=== PATIENT | male | born 1945 | race Caucasian/White ===

== ENCOUNTER → 2021-03-31 | Day surgery (SDC) | payer MEDICARE, OTHER ==
[2021-03-29 10:25] LABS: BASOPHILS # (AUTO) 0.1 (0.0-0.1); BASOPHILS % 0.6 % (0.0-1.0); EOSINOPHILS # (AUTO) 0.2 (0.0-0.4); EOSINOPHILS % 1.8 % (0.0-6.0); HEMATOCRIT 39.3 % (38.2-49.6); HEMOGLOBIN 12.4 g/dL (14.0-18.0); LYMPHOCYTES # (AUTO) 2.2 (1.0-3.2); LYMPHOCYTES % 26.6 % (18.0-39.1); MEAN CORPUSCULAR HGB CONC 31.6 g/dL (31-35); MONOCYTES # (AUTO) 0.6 (0.2-0.8); NEUTROPHILS # (AUTO) 5.2 (2.1-6.9); NEUTROPHILS % 63.8 % (38.7-80.0); PLATELET COUNT 240 x10e3/uL (140-360); RED BLOOD COUNT 4.27 x10e6/uL (4.3-5.7); RED CELL DISTRIBUTION WIDTH 13.3 % (11.7-14.4)
[~2021-03-31] MED LIST: ABILIFY5 MG PO; ACETYL; ALPHA LIPOIC A300 MG; ASPIRIN81 MG PO; BUPIVACAINE 0.25% 30ML SDV ONE; CALCIUM ACETAT667 MG PO; CRESTOR10 MG PO; CYMBALTA60 MG PO; FENTANYL CITRATE/PF 100MCG/2 ML INJ ONE; FLOMAX0.4 MG PO; HYDROCODONE/APAP 10MG-325MG TAB ONE; HYDROMORPHONE 1MG/1ML INJ ONE; LANSOPRAZOLE30 MG; LIDOCAINE 1% W/EPINEPHRINE 20 ML VIAL ONE; LIDOCAINE HCL 2% LOCAL INJ 5 ML SDV VIAL INJ ONE; LOSARTAN POTASS50 MG PO; LYRICA100 MG PO; MELOXICAM7.5 MG PO; METFORMIN HCL1000 MG; METHOCARBAMOL750 MG PO; NEXIUM40 MG PO; ONDANSETRON HCL 4 MG ORAL DISINTEGRATING TAB ONE; POVIDONE IODINE 0.05% 0.05 % ML PO ONE; PRESERVISION A1 EAC2; PROPOFOL IV EMULSION 10 MG/ML 20 ML VIAL ONE; SEVOFLURANE INHAL SOLN 250 ML PEN BTL ONE; SODIUM CHLORIDE 0.9% 50ML 100 ML ONE; TRAMADOL-ACETAMI1 EA PO; TYLENOL325 MG PO; VITAMIN D250 MC1; VYTORIN 10-401 EACH PO; [UNRECOGNIZED DRUG - OTHER]
[2021-03-31 10:57] LABS: ANION GAP 15.2 mmol/L (8-16); CALCIUM 9.1 mg/dL (8.4-10.2); CREATININE, SERUM 1.28 mg/dL (0.72-1.25); POTASSIUM 4.2 mmol/L (3.5-5.1)
[2021-03-31 15:00] VITALS: BP 129/65
== END | disposition home or self-care (01) ==
LOC: OR 08:26
PROVIDERS: ATTEND Orthopaedic Surgery
DX: S83.232A Complex tear of medial meniscus, current injury, left knee, initial encounter (principal); S83.282A Other tear of lateral meniscus, current injury, left knee, initial encounter; M22.42 Chondromalacia patellae, left knee; M67.52 Plica syndrome, left knee; G47.33 Obstructive sleep apnea (adult) (pediatric); E11.9 Type 2 diabetes mellitus without complications; F32.9 Major depressive disorder, single episode, unspecified; X58.XXXA Exposure to other specified factors, initial encounter; Z01.810 Encounter for preprocedural cardiovascular examination; Z01.812 Encounter for preprocedural laboratory examination; Z01.818 Encounter for other preprocedural examination; Z20.822 Contact with and (suspected) exposure to COVID-19; Z79.84 Long term (current) use of oral hypoglycemic drugs; Z79.82 Long term (current) use of aspirin
CPT/HCPCS: 29882; 36415 ×2; 71046; 80048; 82948; 85025; 93005; J0690; J1170; J3010; Q0162; U0002; J2001